=== PATIENT | male | born 1985 | race Caucasian/White ===

== ENCOUNTER 2016-06-10 11:03 | Emergency (ER) | payer OTHER ==
[~2016-06-10] VITALS: Ht 177.8 cm; Wt 80.0 kg
[~2016-06-10 11:03] MED LIST: LORA-441 PO
[2016-06-10 11:07] VITALS: Ht 177.8 cm; Wt 80.0 kg
[2016-06-10 12:06] LABS: ADD SCAN DIFF NO
[2016-06-10 12:12] LABS: BASOPHILS % 0.5 % (0.0-2.0); EOSINOPHILS # 0.2 10^3/ul (0.0-0.5); EOSINOPHILS % 2.4 % (0.0-7.0); HEMATOCRIT 44.9 % (42.0-52.0); HEMOGLOBIN 15.2 g/dl (14.0-18.0); LYMPHOCYTES # 2.1 10^3/ul (0.8-2.9); LYMPHOCYTES % 31.2 % (15.0-51.0); MEAN CORPUSCULAR HEMOGLOBIN 28.6 pg (29.0-33.0); MEAN CORPUSCULAR HGB CONC 33.9 g/dl (32.0-37.0); MEAN CORPUSCULAR VOLUME 84.6 fl (82.0-101.0); MEAN PLATELET VOLUME 9.7 fl (7.4-10.4); MONOCYTE # 0.4 10^3/ul (0.3-0.9); MONOCYTES % 5.3 % (0.0-11.0); NEUTROPHILS % 60.4 % (39.0-77.0); PLATELET COUNT 185 10^3/UL (140-415); RED BLOOD COUNT 5.31 10^6/ul (4.70-6.10); WHITE BLOOD COUNT 6.6 10^3/ul (4.8-10.8)
[2016-06-10 12:25] LABS: ALBUMIN 4.7 g/dl (3.3-4.9); ALBUMIN/GLOBULIN RATIO 1.27; BILIRUBIN,INDIRECT 0.9 mg/dl (0-1.1); BILIRUBIN,TOTAL 0.9 mg/dl (0.2-1.3); CALCIUM 9.5 mg/dl (8.4-10.2); CREATININE 0.81 mg/dl (0.61-1.24); POTASSIUM 3.8 mmol/L (3.5-5.1); TOTAL PROTEIN 8.4 g/dl (6.1-8.1)
[2016-06-10] MEDS ORDERED: SOD CHLORIDE 0.9% 100 ML ONE (13:17)
[2016-06-10] MEDS ORDERED: IOHEXOL 300MG/ML 150 ML BTL ONE (13:17)
--- NOTE | 2016-06-10 13:57 | RADRPT ---
PROCEDURE: CT Abdomen and Pelvis with contrast. CLINICAL INDICATION: Abdominal pain TECHNIQUE: CT scan of the abdomen and pelvis with contrast was performed on a multidetector high-r esolution CT scanner. Coronal and sagittal reformatted images were obtained from the axial source im ages. Images were reviewed on a high-resolution PACS workstation. 80 cc of Isovue 300 iodinated cont rast was administered intravenously without reported complication. The total exam CTDI equals 14 mG y and the total exam DLP equals 862 mGy-cm. One or more of the following dose reduction techniques were used: Automated exposure control, Adjustment of the mA and/or kV according to patient size, and /or use of iterative reconstruction technique. COMPARISON: None. FINDINGS: The lung bases are clear. No suspicious hepatic mass identified. The portal vein is patent. The pancreatic ductal dilatation . The spleen and adrenals are unremarkable. No focal pericholecystic inflammatory changes. No hydronephrosis. No obstructing renal stone. No bowel obstruction. Normal-caliber appendix. A few sigmoid colonic diverticula are seen. No significant retroperitoneal lymphadenopathy, ascites or evidence of pneumoperitoneum. IMPRESSION: No acute intra-abdominal process identified. No evidence of bowel obstruction. Normal-caliber appendix. A few sigmoid colonic diverticula are seen. RPTAT: AA .Colt Fitzgerald MD, Date Time Electronically viewed and signed by .Colt Fitzgerald MD, MD on 06/10/2016 13:56 .T/
[2016-06-10] MEDS ORDERED: DOCU-144 PO (14:14)
--- NOTE | 2016-06-10 14:39 | ERD ---
ER Documentation Chief Complaint Date/Time DATE: 06/10/16 TIME: 14:38 Chief Complaint BLOOD IN STOOL X 2 WEEKS.ABDOMINAL CRAMPING HPI This 31-year-old male complains of intermittent blood in stool for last 2 weeks. Is usually with the bowel movements and is bright red. Denies any significant bleeding or not having a bowel movement. Denies any fevers or vomiting. Possibly some minimal left lower quadrant abdominal pain but not sustained. ROS All systems reviewed and are negative except as per history of present illness. Medications Home Meds Active Scripts Docusate Sodium* (Colace*) 100 Mg Capsule, 100 MG PO TID, #90 CAP Prov:ADELINA LINDSEY MD 06/10/16 Lorazepam* (Ativan*) 0.5 Mg Tablet, 0.5 MG PO Q8, #10 TAB Prov:WINDY ROTHMAN 12/03/15 PMhx/Soc Medical and Surgical Hx: pt denies Surgical Hx History of Surgery: No Anesthesia Reaction: No Hx Neurological Disorder: No Hx Respiratory Disorders: Yes (asthma) Hx Cardiac Disorders: No Hx Psychiatric Problems: No Hx Miscellaneous Medical Probl: No Hx Alcohol Use: No (quit drinking 2 yearts ago) Hx Substance Use: Yes (marijuana occasionally) Hx Tobacco Use: No Smoking Status: Never smoker Physical Exam Vitals Vital Signs Date Time Temp Pulse Resp B/P Pulse Ox O2 Delivery O2 Flow Rate FiO2 06/10/16 11:07 97.1 88 18 139/85 98 Physical Exam Const: [] Alert, [id number] per Head: Atraumatic Eyes: Normal Conjunctiva ENT: Normal External Ears, Nose and Mouth. Neck: Full range of motion..~ No meningismus. Resp: Clear to auscultation bilaterally Cardio: Regular rate and rhythm, no murmurs Abd: Soft, non tender, non distended. Normal bowel sounds. Rectal exam shows no gross blood or melanotic stools Skin: No petechiae or rashes Back: No midline or flank tenderness Ext: No cyanosis, or edema Neur: Awake and alert Psych: Normal Mood and Affect Result Diagram: 06/10/16 1155 06/10/16 1155 Results 24 hrs Laboratory Tests Test 06/10/16 11:55 White Blood Count 6.610^3/ul Red Blood Count 5.3110^6/ul Hemoglobin 15.2g/dl Hematocrit 44.9% Mean Corpuscular Volume 84.6fl Mean Corpuscular Hemoglobin 28.6pg Mean Corpuscular Hemoglobin Concent 33.9g/dl Red Cell Distribution Width 12.0% Platelet Count 83727^3/UL Mean Platelet Volume 9.7fl Neutrophils % 60.4% Lymphocytes % 31.2% Monocytes % 5.3% Eosinophils % 2.4% Basophils % 0.5% Nucleated Red Blood Cells % 0.0/100WBC Neutrophils # 4.010^3/ul Lymphocytes # 2.110^3/ul Monocytes # 0.410^3/ul Eosinophils # 0.210^3/ul Basophils # 0.010^3/ul Nucleated Red Blood Cells # 0.010^3/ul Sodium Level 140mmol/L Potassium Level 3.8mmol/L Chloride Level 105mmol/L Carbon Dioxide Level 29mmol/L Anion Gap 10 Blood Urea Nitrogen 18mg/dl Creatinine 0.81mg/dl Glucose Level 104mg/dl Calcium Level 9.5mg/dl Total Bilirubin 0.9mg/dl Direct Bilirubin 0.00mg/dl Indirect Bilirubin 0.9mg/dl Aspartate Amino Transf (AST/SGOT) 23IU/L Alanine Aminotransferase (ALT/SGPT) 30IU/L Alkaline Phosphatase 52IU/L Total Protein 8.4g/dl Albumin 4.7g/dl Globulin 3.70g/dl Albumin/Globulin Ratio 1.27 Lipase 34U/L Current Medications Medications (Trade) Dose Ordered Sig/Blayne Route PRN Reason Start Time Stop Time Status Last Admin Dose Admin IV Flush 10 ml 10 ml STK-MED ONCE .ROUTE 06/10/16 13:17 06/10/16 13:18 DC 06/10/16 13:41 Sodium Chloride (NS) 100 ml @ ud STK-MED ONCE .ROUTE 06/10/16 13:17 06/10/16 13:18 DC 06/10/16 13:41 Iohexol (Omnipaque 300mg/ ml) 150 ml STK-MED ONCE .ROUTE 06/10/16 13:17 06/10/16 13:18 DC 06/10/16 13:42 Procedures/MDM CBC and CMP are normal. CT abdomen pelvis with IV contrast shows a few diverticula in the sigmoid colon but no abscess, acute abnormalities. Patient was stable, amatory with no evidence of active bleeding, hypovolemia, or symptoms during his ED course. Patient has rectal bleeding which appears to be stable. May be internal hemorrhoids or possibly related to diverticula seen on CT scan. Patient shows no signs or symptoms to suggest need for emergent intervention. He will be discharged home with a prescription of Colace instructions for gastroenterology evaluation for sigmoidoscopy or colonoscopy. He should return for dizziness, chest pain, shortness breath, fevers, worsening pain, bleeding, new worsening symptoms. The patient was stable with no new complaints during the ER course. Clinically, there is no current evidence to suggest meningitis, sepsis, acute abdomen, pneumonia, acute coronary syndrome, pulmonary embolism, or any other emergent condition appearing to require further evaluation or hospitalization. The patient should certainly return for any new or worsening symptoms per the aftercare instructions. They should otherwise follow-up with her primary care doctor for reevaluation this week. Departure Diagnosis: Primary Impression: Diverticulosis Diverticulosis site: unspecified location Diverticulosis bleeding: diverticulosis with bleeding Qualified Code: K57.91 - Diverticulosis of intestine with bleeding, unspecified intestinal tract location Condition: Stable Patient Instructions: Rectal Bleed, Stable, Diverticulosis Referrals: GABINO DANG MD, PIYUSH K MD SUCHOV, MORDO MD Additional Instructions: Blood shows no abnormalities. The CT scan shows diverticulosis which may be because of bleeding or possible internal hemorrhoids. Recommend see gastroenterology for colonoscopy. Recheck otherwise for dizziness, shortness of breath, fevers, worsening pain, new worsening symptoms. May need authorization from primary doctor for gastroenterology visit. ADELINA LINDSEY MD Jun 10, 2016 14:39
[2016-06-10 14:41] VITALS: BP 128/78; PULSE 72; RESP 18; TEMP 98.1
== END 2016-06-10 14:42 | disposition home or self-care (01) ==
LOC: FTE 11:03
DX: K57.91 Diverticulosis of intestine, part unspecified, without perforation or abscess with bleeding (principal); J45.909 Unspecified asthma, uncomplicated
CPT/HCPCS: 36415; 74177; 80053; 83690; 85025; Q9967; Z7502; Z7610

== ENCOUNTER 2016-06-21 14:13 | Emergency (ER) | payer OTHER ==
[~2016-06-21] VITALS: Ht 177.8 cm; Wt 88.5 kg
[~2016-06-21 14:13] MED LIST changes: +DOCU-144 PO
[2016-06-21 14:14] VITALS: Ht 177.8 cm; Wt 88.5 kg
[2016-06-21 14:51] LABS: URINE BLOOD (Dip) POC Negative (NEGATIVE)
[2016-06-21] MEDS ORDERED: DOXY100T20 PO (15:01)
--- NOTE | 2016-06-21 17:31 | ERD ---
ER Documentation Chief Complaint Date/Time DATE: 06/21/16 TIME: 17:28 Chief Complaint pain @ left ear and tonsils HPI This patient is a 31-year-old male presenting to the emergency department for left ear pain and dark-colored urine ongoing for the past few days. Symptoms are constant. The patient states he just finished Keflex for an ear infection. The patient is taken no other medication for relief of symptoms. Symptoms are currently mild. No other symptoms to report currently ROS All systems reviewed and are negative except as per history of present illness. Medications Home Meds Active Scripts Doxycycline Hyclate* (Doxycycline Hyclate*) 100 Mg Tablet.dr, 100 MG PO BID for 10 Days, #20 TAB Prov:RAVEN VELEZ PA-C 06/21/16 Docusate Sodium* (Colace*) 100 Mg Capsule, 100 MG PO TID, #90 CAP Prov:ADELINA LINDSEY MD 06/10/16 Lorazepam* (Ativan*) 0.5 Mg Tablet, 0.5 MG PO Q8, #10 TAB Prov:WINDY ROTHMAN 12/03/15 PMhx/Soc History of Surgery: No Anesthesia Reaction: No Hx Neurological Disorder: No Hx Respiratory Disorders: Yes (asthma) Hx Cardiac Disorders: No Hx Psychiatric Problems: No Hx Miscellaneous Medical Probl: No Hx Alcohol Use: No (quit drinking 2 yearts ago) Hx Substance Use: Yes (marijuana occasionally) Hx Tobacco Use: No FmHx Noncontributory for chief complaint Physical Exam Vitals Vital Signs Date Time Temp Pulse Resp B/P Pulse Ox O2 Delivery O2 Flow Rate FiO2 06/21/16 14:14 98.4 69 19 148/77 99 Physical Exam Const: The patient is resting comfortably no acute distress. Head: Atraumatic Eyes: Normal Conjunctiva ENT: Normal External Ears, Nose and Mouth. Tympanic membranes are nonerythematous bilaterally. There is no tonsillar erythema, hypertrophy, or exudate present. The airway is clear. Neck: Full range of motion..~ No meningismus. Resp: Clear to auscultation bilaterally Cardio: Regular rate and rhythm, no murmurs Abd: Soft, non tender, non distended. Normal bowel sounds Skin: No petechiae or rashes Back: No midline or flank tenderness Ext: No cyanosis, or edema Neur: Awake and alert Psych: Normal Mood and Affect Results 24 hrs Laboratory Tests Test 06/21/16 14:52 Bedside Urine pH (LAB) 5.0 Bedside Urine Protein (LAB) Negative Bedside Urine Glucose (UA) Negative Bedside Urine Ketones (LAB) Negative Bedside Urine Blood Negative Bedside Urine Nitrite (LAB) Negative Bedside Urine Leukocyte Esterase (L Trace Procedures/MDM 31-year-old male presents secondary to complaints of darker colored urine and left ear pain. On physical examination the patient's vitals are within normal limits. The ears are normal on exam and there are no signs of otitis media. Urine dip was positive for trace leukocytes. I will treat the patient with a prescription for doxycycline as an outpatient. The patient understands the discharge plan and diagnosis. All questions and concerns were addressed. The patient was given strict ER return precautions. The patient is to have close follow-up with the primary care physician. Departure Diagnosis: Primary Impression: Urinary tract infection Condition: Fair Patient Instructions: Understanding Urinary Tract Infections (UTIs) Referrals: [facility] YOU HAVE RECEIVED A MEDICAL SCREENING EXAM AND THE RESULTS INDICATE THAT YOU DO NOT HAVE A CONDITION THAT REQUIRES URGENT TREATMENT IN THE EMERGENCY DEPARTMENT. FURTHER EVALUATION AND TREATMENT OF YOUR CONDITION CAN WAIT UNTIL YOU ARE SEEN IN YOUR DOCTORS OFFICE WITHIN THE NEXT 1-2 DAYS. IT IS YOUR RESPONSIBILITY TO MAKE AN APPOINTMENT FOR FOLOW-UP CARE. IF YOU HAVE A PRIMARY DOCTOR --you should call your primary doctor and schedule an appointment IF YOU DO NOT HAVE A PRIMARY DOCTOR YOU CAN CALL OUR PHYSICIAN REFERRAL HOTLINE AT IF YOU CAN NOT AFFORD TO SEE A PHYSICIAN YOU CAN CHOSE FROM THE FOLLOWING [facility] [address] [facility] [address] [facility] [address] [facility] [address] [facility] [address] [facility] [facility]. [address] Additional Instructions: Follow up with your PCP within the next 1-3 days for a more thorough evaluation. Return the the emergency department immediately if symptoms worsen or change. If you have any questions regarding medications, ask your pharmacist or us before you leave. If any adverse reactions, occur while taking your medications, discontinue the treatment and return to the emergency department immediately. If any new or worsening symptoms, uncontrolled fevers, or other unexplained symptoms occur, return to the emergency department immediately. Take your medications as directed, and complete the entire course of treatment. RAVEN VELEZ PA-C June 21, 2016 17:31
== END 2016-06-21 15:21 | disposition home or self-care (01) ==
LOC: FTE 14:13
DX: N39.0 Urinary tract infection, site not specified (principal); J45.909 Unspecified asthma, uncomplicated
CPT/HCPCS: 81003; Z7502; 99283